=== PATIENT | female | born 2000 | race Caucasian/White ===

== ENCOUNTER 2024-09-16 19:18 | Emergency (ER) | payer BC ==
[~2024-09-16] VITALS: Ht 177.8 cm; Wt 63.5 kg
[2024-09-16] MEDS ORDERED: ACETAMINOPHEN ES 500 MG TABLET ONE (20:36)
[2024-09-16] MEDS: ACETAMINOPHEN ES 500 MG TABLET PO ONE (20:41)
[2024-09-16] MEDS: IV NS 0.9% 500 ML BAG IV ONE (20:57)
[2024-09-16 21:28] VITALS: BP 106/63; TEMP 100.8; O2SAT 97
== END 2024-09-16 22:26 | disposition home or self-care (01) ==
LOC: ER 19:19
DX: B34.9 Viral infection, unspecified (principal); R06.02 Shortness of breath; R50.9 Fever, unspecified; R05.9 Cough, unspecified; Z88.6 Allergy status to analgesic agent
CPT/HCPCS: 99283; 96360; J7040